=== PATIENT | male | born 1980 | race Caucasian/White ===

== ENCOUNTER 2017-10-16 13:42 | Emergency (ER) | payer MEDICAID ==
[~2017-10-16] VITALS: Ht 182.9 cm; Wt 95.0 kg
[2017-10-16] MEDS ORDERED: ONDANSETRON 2MG/ML, 2ML IVPush ONE (14:30)
[2017-10-16] MEDS ORDERED: PLEASE ENTER HEIGHT AND WEIGHT MC SCH (14:30)
[2017-10-16 18:40] VITALS: BP 128/77
== END 2017-10-16 18:42 | disposition home or self-care (01) ==
LOC: ED 17:22
DX: F10.120 Alcohol abuse with intoxication, uncomplicated (principal)
CPT/HCPCS: 96374; 99284; J2405

== ENCOUNTER 2017-10-17 08:13 | Emergency (ER) | payer MEDICAID ==
[~2017-10-17] VITALS: Ht 182.9 cm; Wt 210.0 kg
[2017-10-17 12:28] VITALS: BP 162/72
== END 2017-10-17 14:14 | disposition home or self-care (01) ==
LOC: ED 14:08
DX: F10.120 Alcohol abuse with intoxication, uncomplicated (principal)
CPT/HCPCS: 99283